=== PATIENT | female | born 2000 | race Caucasian/White ===

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

== ENCOUNTER 2018-01-02 10:50 | Emergency (ER) | payer MEDICAID ==
[~2018-01-02] VITALS: Ht 152.4 cm; Wt 56.0 kg
[2018-01-02 10:59] VITALS: BP 106/72; PULSE 92; RESP 17; TEMP 98.3; O2SAT 99
[2018-01-02] MEDS ORDERED: SODIUM CHLOR 0.9% 1000 ML INJ 1,000 ML IV SCH (11:24)
[2018-01-02] MEDS ORDERED: ONDANSETRON HCL 4 MG/2 ML VIAL IVP ONE (11:30)
[2018-01-02] MEDS ORDERED: KETOROLAC TROMETHAMINE 30 MG/ML (IVP) VIAL IVP ONE (11:30)
[2018-01-02] MEDS ORDERED: SODIUM CHLORIDE 0.9% FLUSH 10 ML FLUSH IV FLUSH PRN (11:30)
--- NOTE | 2018-01-02 11:30 | PD ---
HPI Chief Complaint: GI Complaint Time Seen by Provider: 11:11 Travel History International Travel<30 days: No Contact w/Intl Traveler<30days: No Traveled to known affect area: No History of Present Illness HPI 17-year-old female presents to emergency department with complaint of continued shortness of breath after being seen on December 28, with the complaint of shortness of breath here at [place], and onset of vomiting today. She said she had a chest x-ray on December 28 which was normal and was told she most likely had anxiety. She denies history of anxiety. Reports chest pain "slightly." Denies abdominal pain. Reports tingling sensation throughout her body. Reports sore throat for the past 2-3 days. Reports sinus pressure and headache. Reports subjective fever. Reports epistaxis when she vomits that has self resolved. Otherwise denies ear pain, cough. Denies dyspnea dysuria, abnormal vaginal discharge, odor. States she is in a homosexual relationship and denies risk of . Denies contraception use. Denies history of DVT/PE. Denies recent surgeries, travel. 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 History taking ibuprofen for symptom management. Last taken ibuprofen last night. Rates pain 7/10. No known relieving factors. Shortness of breath is worse with activity. Better at rest. No primary care provider. No known allergies. Denies significant past medical history. Denies history of asthma. Denies tobacco use. Has no other medical complaints. No other modifying factors or associated signs and symptoms. PFSH Past Medical History Medical History: Denies Significant Hx ?: Not LMP: 11/2017 Past Surgical History Surgical History: No Previous Surgery Social History Alcohol Use: No Tobacco Use: No Substance Use: No Allergies-Medications (Allergen,Severity, Reaction): Coded Allergies: No Known Allergies (Unverified , 01/02/18) Reported Meds & Prescriptions Reported Meds & Active Scripts Active Ibuprofen 800 Mg Tab 800 Mg PO Q6HR PRN Zofran Odt (Ondansetron Odt) 4 Mg Tab 4 Mg SL Q8HR PRN Review of Systems Except as stated in HPI: all other systems reviewed are Neg Physical Exam Narrative GENERAL: Well-nourished, well-developed female patient, in no acute distress; afebrile, nontoxic-appearing SKIN: Pale. Warm and dry. No rash. HEAD: Atraumatic. Normocephalic. EYES: Pupils equal and round. No scleral icterus. No injection or drainage. ENT: Mucosa pink and moist. No erythema or exudates. No uvular edema. No uvular , palatal, or tonsillar deviation. Airway patent. EARS: Bilateral pinnae and external canals appear within normal limits. Bilateral tympanic membranes without erythema, dullness or perforation. NECK: Trachea midline. No lymphadenopathy. CARDIOVASCULAR: Regular rate and rhythm. No murmur appreciated. RESPIRATORY: Tachypnea in mid 20's. No accessory muscle use. Clear to auscultation. Breath sounds equal bilaterally. No retractions. GASTROINTESTINAL: Abdomen soft, non-tender, nondistended. Hepatic and splenic margins not palpable. Bowel sounds are active 4 quadrants. MUSCULOSKELETAL: No obvious deformities. No clubbing. No cyanosis. No edema. NEUROLOGICAL: Awake and alert. Oriented 3. No obvious cranial nerve deficits. Motor grossly within normal limits. Normal speech. Moves all extremities. 5/5 strength to all extremities. PSYCHIATRIC: Appropriate mood and affect; insight and judgment normal. Data Data Last Documented VS Vital Signs Date Time Temp Pulse Resp B/P (MAP) Pulse Ox O2 Delivery O2 Flow Rate FiO2 01/02/18 16:02 01/02/18 13:49 98.8 84 19 100 Room Air Orders Orders Complete Blood Count With Diff (01/02/18 11:24) Comprehensive Metabolic Panel (01/02/18 11:24) Lipase (01/02/18 11:24) Iv Access Insert/Monitor (01/02/18 11:24) Ondansetron Inj (Zofran Inj) (01/02/18 11:30) Sodium Chlor 0.9% 1000 Ml Inj (Ns 1000 M (01/02/18 11:24) Sodium Chloride 0.9% Flush (Ns Flush) (01/02/18 11:30) Electrocardiogram (01/02/18 11:24) Ketorolac Inj (Toradol Inj) (01/02/18 11:30) Urinalysis - C+S If Indicated (01/02/18 11:24) Ed Urine Pregnancytest Poc (01/02/18 11:24) D-Dimer (01/02/18 11:24) Chest, Single Ap (01/02/18 11:24) Group A Rapid Strep Screen (01/02/18 11:30) Monoscreen (01/02/18 11:31) Influenzae A/B Antigen (01/02/18 12:11) Strep Culture (Group A) (01/02/18 11:30) Lactic Acid (01/02/18 14:12) Ed Poc Ultrasound (01/02/18 ) Troponin I (01/02/18 14:27) Ed Discharge Order (01/02/18 15:47) Labs Laboratory Tests Test 01/02/18 11:30 01/02/18 13:55 01/02/18 14:17 White Blood Count 17.8 TH/MM3 Red Blood Count 4.57 MIL/MM3 Hemoglobin 14.3 GM/DL Hematocrit 42.2 % Mean Corpuscular Volume 92.3 FL Mean Corpuscular Hemoglobin 31.4 PG Mean Corpuscular Hemoglobin Concent 34.0 % Red Cell Distribution Width 13.2 % Platelet Count 296 TH/MM3 Mean Platelet Volume 7.9 FL Neutrophils (%) (Auto) 91.6 % Lymphocytes (%) (Auto) 4.2 % Monocytes (%) (Auto) 3.8 % Eosinophils (%) (Auto) 0.2 % Basophils (%) (Auto) 0.2 % Neutrophils # (Auto) 16.3 TH/MM3 Lymphocytes # (Auto) 0.7 TH/MM3 Monocytes # (Auto) 0.7 TH/MM3 Eosinophils # (Auto) 0.0 TH/MM3 Basophils # (Auto) 0.0 TH/MM3 CBC Comment DIFF FINAL Differential Comment D-Dimer Quantitative (PE/DVT) 0.30 MG/L FEU Blood Urea Nitrogen 8 MG/DL Creatinine 0.89 MG/DL Random Glucose 92 MG/DL Total Protein 9.2 GM/DL Albumin 4.6 GM/DL Calcium Level 9.6 MG/DL Alkaline Phosphatase 59 U/L Aspartate Amino Transf (AST/SGOT) 20 U/L Alanine Aminotransferase (ALT/SGPT) 25 U/L Total Bilirubin 0.2 MG/DL Sodium Level 139 MEQ/L Potassium Level 3.3 MEQ/L Chloride Level 106 MEQ/L Carbon Dioxide Level 21.7 MEQ/L Anion Gap 11 MEQ/L Estimat Glomerular Filtration Rate 82 ML/MIN Troponin I LESS THAN 0.02 NG/ML Lipase 157 U/L Monoscreen NEG Urine Color LIGHT-YELLOW Urine Turbidity CLEAR Urine pH 8.0 Urine Specific [place] 1.017 Urine Protein NEG mg/dL Urine Glucose (UA) NEG mg/dL Urine Ketones 10 mg/dL Urine Occult Blood NEG Urine Nitrite NEG Urine Bilirubin NEG Urine Urobilinogen LESS THAN 2.0 MG/DL Urine Leukocyte Esterase NEG Urine WBC 1 /hpf Urine Squamous Epithelial Cells 2 /hpf Microscopic Urinalysis Comment CULT NOT INDICATED Lactic Acid Level 1.2 mmol/L MDM Medical Decision Making Medical Screen Exam Complete: Yes Emergency Medical Condition: Yes Medical Record Reviewed: Yes Differential Diagnosis PE, viral illness, mono, strep pharyngitis, vomiting, UTI, sepsis Narrative Course 17-year-old female with multiple complaints, with main complaint of shortness of breath and vomiting. She was seen here on December 28 for complaint of shortness of breath and chest x-ray was unremarkable. She was told he was anxiety, but the patient says she does not have history of anxiety. I discussed the patient with Dr. Mullen, and a plan of care was discussed. Dr. Mullen also evaluated the patient and is involved in care. 1347: WBC 17.8. Neut % 91.6. Neut # 16.3. D-dimer 0.30. K 3.3, otherwise CMP unremarkable. Lipase 157. Monoscreen negative. Rapid strep and influenza negative. Chest x-ray with no acute findings. 1546: Lactic acid 1.2. Troponin less than 0.02. Dr. Mullen performed bedside ultrasound; see his procedure note. Dr. Mullen has reviewed all labs and imaging and is suspecting viral illness, and is comfortable with discharging the patient home. Viral illness and symptom management discussed. Instructed patient to follow-up outpatient. Patient provided contact information for [facility] clinic. Ibuprofen and Zofran prescribed for home. Instructed patient to follow up with primary care provider. Patient verbalizes understanding and agreement with treatment plan. Patient is medically cleared and stable for discharge. Discussed reasons to return to the emergency department. Patient agrees with treatment plan. The patients vital signs are stable and the patient is stable for outpatient follow-up and treatment. Patient discharged home, stable and in no acute distress. Diagnosis Primary Impression: Viral illness Referrals: [facility] Primary Care Physician Patient Instructions: General Instructions, Viral Syndrome (ED) Departure Forms: Tests/Procedures, Work Release Enter return to work date: January 04, 2018 Additional Instructions: Ibuprofen or Tylenol as directed and as needed to reduce fever; may alternate ibuprofen and Tylenol as needed every 3 hours to minimize fever [id number] cold/flu medications as directed and as needed for symptom management Get plenty of sleep/rest Drink plenty of fluids to prevent dehydration; such as Gatorade, Powerade, Pedialyte [place] diet to encourage nutrition such as crackers, fruit, applesauce, toast, soup etc. Use an air humidifier/turn off ceiling fans Follow-up with your primary care provider within 1 day Return immediately to the emergency department with worsening of symptoms Med/Other Pt SpecificInfo: Prescription(s) given Scripts Ibuprofen (Ibuprofen) 800 Mg Tab 800 MG PO Q6HR Y for PAIN, #30 TAB 0 Refills Prov: Esther Lagos 01/02/18 Ondansetron Odt (Zofran Odt) 4 Mg Tab 4 MG SL Q8HR Y for Nausea/Vomiting, #6 TAB 0 Refills Prov: Esther Lagos 01/02/18 Disposition: 01 DISCHARGE HOME Condition: Stable Esther Lagos January 02, 2018 11:30
--- NOTE | 2018-01-02 12:09 | RADRPT ---
EXAM DATE/TIME: 01/02/2018 11:43 [facility] COMPARISON: No previous studies available for comparison. INDICATIONS : Vomiting x 1 day. MEDICAL HISTORY : SURGICAL HISTORY : None. ENCOUNTER: Initial ACUITY: 1 day PAIN SCORE: 0/10 LOCATION: Bilateral chest FINDINGS: A single view of the chest demonstrates the lungs to be symmetrically aerated without evidence of mas s, infiltrate or effusion. The cardiomediastinal contours are unremarkable. Osseous structures are intact. CONCLUSION: Normal examination for a patient of this age. Zackary Tesfaye MD on January 02, 2018 at 12:08 Board Certified Radiologist. This report was verified electronically.
[2018-01-02 12:38] LABS: AUTOMATED NEUTROPHIL # 16.3 TH/MM3 (1.8-7.7); BASOPHIL % 0.2 % (0.0-2.0); EOSINOPHIL % 0.2 % (0.0-4.0); HEMATOCRIT 42.2 % (35.0-46.0); HEMOGLOBIN 14.3 GM/DL (11.6-15.3); LYMPH % 4.2 % (9.0-44.0); LYMPHOCYTE # 0.7 TH/MM3 (1.0-4.8); MEAN CELL VOLUME 92.3 FL (80.0-100.0); MEAN CORPUSCULAR HEMOGLOBIN 31.4 PG (27.0-34.0); MEAN PLATELET VOLUME 7.9 FL (7.0-11.0); MONO % 3.8 % (0.0-8.0); MONOCYTE # 0.7 TH/MM3 (0-0.9); NEUT % 91.6 % (16.0-70.0); PLATELET COUNT 296 TH/MM3 (150-450); RED BLOOD COUNT 4.57 MIL/MM3 (4.00-5.30); RED CELL DISTRIBUTION WIDTH 13.2 % (11.6-17.2); WHITE BLOOD COUNT 17.8 TH/MM3 (4.0-11.0)
[2018-01-02 12:52] LABS: ALBUMIN 4.6 GM/DL (3.4-5.0); AST (GOT) 20 U/L (16-38); BICARBONATE 21.7 MEQ/L (21.0-32.0); BLOOD UREA NITROGEN 8 MG/DL (7-18); CALCIUM 9.6 MG/DL (8.5-10.1); CHLORIDE 106 MEQ/L (98-107); CREATININE 0.89 MG/DL (0.50-1.00); GLOMERULAR FILTRATION RATE 82 ML/MIN (>89); GLUCOSE,RANDOM 92 MG/DL (74-106); SODIUM (NA) 139 MEQ/L (136-145)
[2018-01-02 12:53] LABS: ALT (GPT) 25 U/L (9-42)
[2018-01-02 12:54] LABS: MONOSCREEN NEG (NEG)
[2018-01-02 12:55] LABS: ALKALINE PHOSPHATASE 59 U/L (45-117); TOTAL BILIRUBIN ADULT 0.2 MG/DL (0.2-1.0); TOTAL PROTEIN 9.2 GM/DL (6.4-8.2)
[2018-01-02 13:49] VITALS: BP 102/62; PULSE 84; RESP 19; TEMP 98.8; O2SAT 100
[2018-01-02 14:16] LABS: BILIRUBIN, URINE NEG (NEG); BLOOD, URINE NEG (NEG); GLUCOSE,URINE NEG (NEG); KETONE, URINE 10 mg/dL (NEG); NITRITE,URINE NEG (NEG); SQUAMOUS EPITHELIAL CELL URINE 2 /hpf (0-5); URINE COLOR LIGHT-YELLOW (YELLW/STRAW); URINE LEUKOCYTE ESTERASE NEG (NEG)
[2018-01-02] MEDS ORDERED: IBUP1TAB7 PO (15:51)
[2018-01-02] MEDS ORDERED: ZOFR4TAB3 SL (15:51)
--- NOTE | 2018-01-02 17:13 | EKG ---
Date Performed: 01/02/2018 Time Performed: 12:01:21 PTAGE: 17 years EKG: Sinus rhythm NORMAL ECG NO PREVIOUS TRACING DOCTOR: Doc Cool Interpretating Date/Time 01/02/2018 17:11:41
--- NOTE | 2018-01-02 17:34 | PD ---
Data Data Last Documented VS Vital Signs Date Time Temp Pulse Resp B/P (MAP) Pulse Ox O2 Delivery O2 Flow Rate FiO2 01/02/18 16:02 01/02/18 13:49 98.8 84 19 100 Room Air Orders Orders Complete Blood Count With Diff (01/02/18 11:24) Comprehensive Metabolic Panel (01/02/18 11:24) Lipase (01/02/18 11:24) Iv Access Insert/Monitor (01/02/18 11:24) Ondansetron Inj (Zofran Inj) (01/02/18 11:30) Sodium Chlor 0.9% 1000 Ml Inj (Ns 1000 M (01/02/18 11:24) Sodium Chloride 0.9% Flush (Ns Flush) (01/02/18 11:30) Electrocardiogram (01/02/18 11:24) Ketorolac Inj (Toradol Inj) (01/02/18 11:30) Urinalysis - C+S If Indicated (01/02/18 11:24) Ed Urine Pregnancytest Poc (01/02/18 11:24) D-Dimer (01/02/18 11:24) Chest, Single Ap (01/02/18 11:24) Group A Rapid Strep Screen (01/02/18 11:30) Monoscreen (01/02/18 11:31) Influenzae A/B Antigen (01/02/18 12:11) Strep Culture (Group A) (01/02/18 11:30) Lactic Acid (01/02/18 14:12) Ed Poc Ultrasound (01/02/18 ) Troponin I (01/02/18 14:27) Ed Discharge Order (01/02/18 15:47) Labs Laboratory Tests Test 01/02/18 11:30 01/02/18 13:55 01/02/18 14:17 White Blood Count 17.8 TH/MM3 Red Blood Count 4.57 MIL/MM3 Hemoglobin 14.3 GM/DL Hematocrit 42.2 % Mean Corpuscular Volume 92.3 FL Mean Corpuscular Hemoglobin 31.4 PG Mean Corpuscular Hemoglobin Concent 34.0 % Red Cell Distribution Width 13.2 % Platelet Count 296 TH/MM3 Mean Platelet Volume 7.9 FL Neutrophils (%) (Auto) 91.6 % Lymphocytes (%) (Auto) 4.2 % Monocytes (%) (Auto) 3.8 % Eosinophils (%) (Auto) 0.2 % Basophils (%) (Auto) 0.2 % Neutrophils # (Auto) 16.3 TH/MM3 Lymphocytes # (Auto) 0.7 TH/MM3 Monocytes # (Auto) 0.7 TH/MM3 Eosinophils # (Auto) 0.0 TH/MM3 Basophils # (Auto) 0.0 TH/MM3 CBC Comment DIFF FINAL Differential Comment D-Dimer Quantitative (PE/DVT) 0.30 MG/L FEU Blood Urea Nitrogen 8 MG/DL Creatinine 0.89 MG/DL Random Glucose 92 MG/DL Total Protein 9.2 GM/DL Albumin 4.6 GM/DL Calcium Level 9.6 MG/DL Alkaline Phosphatase 59 U/L Aspartate Amino Transf (AST/SGOT) 20 U/L Alanine Aminotransferase (ALT/SGPT) 25 U/L Total Bilirubin 0.2 MG/DL Sodium Level 139 MEQ/L Potassium Level 3.3 MEQ/L Chloride Level 106 MEQ/L Carbon Dioxide Level 21.7 MEQ/L Anion Gap 11 MEQ/L Estimat Glomerular Filtration Rate 82 ML/MIN Troponin I LESS THAN 0.02 NG/ML Lipase 157 U/L Monoscreen NEG Urine Color LIGHT-YELLOW Urine Turbidity CLEAR Urine pH 8.0 Urine Specific [place] 1.017 Urine Protein NEG mg/dL Urine Glucose (UA) NEG mg/dL Urine Ketones 10 mg/dL Urine Occult Blood NEG Urine Nitrite NEG Urine Bilirubin NEG Urine Urobilinogen LESS THAN 2.0 MG/DL Urine Leukocyte Esterase NEG Urine WBC 1 /hpf Urine Squamous Epithelial Cells 2 /hpf Microscopic Urinalysis Comment CULT NOT INDICATED Lactic Acid Level 1.2 mmol/L MDM Supervised Visit with GAVIN: Yes Narrative Course The history, exam, and medical decision-making in the associated mid-level provider note were completed with my assistance. I reviewed and agree with the findings presented. I attest that I had a [id number] encounter with the patient on the same day, and personally performed and documented my assessment and findings in the medical record. *My assessment and Findings: 17-year-old otherwise healthy young woman presents emergency department with shortness of breath weakness some chills and some pain. She looks a little bit unwell. She is in the emergency department earlier and had a chest x-ray. Labs show a little bit of leukocytosis is nonspecific. A little bit more thorough I did a [id number] ultrasound look for any evidence of pericarditis or poor cardiac function given the shortness of breath that could suggest myocarditis. LV function was grossly normal and her chest x-ray is clear again. No pericardial effusion. Her lactate was normal. Workup is really otherwise unremarkable. Given her negative workup, I think she is safe for discharge but would recommend she return if any worsening symptoms. I would not put her on antibiotics or any other specific medications at this point. She does have some component of anxiety that may be playing into it but I think she probably has an underlying infectious illness is causing the bulk of her symptoms. Procedures Procedure Narrative [id number] ultrasound Focused transthoracic ultrasound performed by me at the bedside to evaluate for LV function and presence or absence of pericardial effusion. LV function was grossly normal with no evidence of pericardial effusion. Diagnosis Primary Impression: Viral illness Referrals: [facility] Primary Care Physician Patient Instructions: General Instructions, Viral Syndrome (ED) Departure Forms: Work Release, Enter return to work date: Tests/Procedures Additional Instruction: Ibuprofen or Tylenol as directed and as needed to reduce fever; may alternate ibuprofen and Tylenol as needed every 3 hours to minimize fever [id number] cold/flu medications as directed and as needed for symptom management Get plenty of sleep/rest Drink plenty of fluids to prevent dehydration; such as Gatorade, Powerade, Pedialyte [place] diet to encourage nutrition such as crackers, fruit, applesauce, toast, soup etc. Use an air humidifier/turn off ceiling fans Follow-up with your primary care provider within 1 day Return immediately to the emergency department with worsening of symptoms Scripts Ibuprofen (Ibuprofen) 800 Mg Tab 800 MG PO Q6HR Y for PAIN, #30 TAB 0 Refills Prov: Esther LagosP 01/02/18 Ondansetron Odt (Zofran Odt) 4 Mg Tab 4 MG SL Q8HR Y for Nausea/Vomiting, #6 TAB 0 Refills Prov: Esther Lagos 01/02/18 Disposition: 01 DISCHARGE HOME Condition: Stable Doc Mullen MD January 02, 2018 17:34
== END 2018-01-02 16:04 | disposition home or self-care (01) ==
LOC: NEPD 10:50
DX: B34.9 Viral infection, unspecified (principal)
CPT/HCPCS: 71045; 80053; 81001; 83605; 83690; 84484; 84703; 85025; 85379; 86308; 87081; 87804; 87880; 93005; 96361; 96374; 96375; 99285; J1885; J2405; J7030